=== PATIENT | female | born 1965 | race Caucasian/White ===

== ENCOUNTER 2017-01-11 08:12 | Emergency (ER) | payer OTHER ==
[2017-01-11 08:17] VITALS: BP 153/100; PULSE 67; TEMP 97.6; BMI 31.2
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
== END 2017-01-11 10:19 | disposition home or self-care (01) ==
LOC: FER 08:12
DX: M79.644 Pain in right finger(s) (principal); Y04.2XXA Assault by strike against or bumped into by another person, initial encounter; Y93.89 Activity, other specified; Y92.239 Unspecified place in hospital as the place of occurrence of the external cause; Y99.0 Civilian activity done for income or pay; I10 Essential (primary) hypertension; E78.00 Pure hypercholesterolemia, unspecified
CPT/HCPCS: 73130-TC-RT; 99282-25

== ENCOUNTER 2021-08-06 17:44 | Emergency (ER) | payer OTHER ==
[2021-08-06 18:00] VITALS: BP 174/90; PULSE 74; BMI 33.5
[2021-08-06] MEDS ORDERED: METOCLOPRAMIDE HCL INJECTION 10 MG/2 ML VIAL IVPB ONE (20:29)
[2021-08-06] MEDS ORDERED: SODIUM CHLORIDE 1,000 ML IV STA (20:29)
[2021-08-06] MEDS ORDERED: ACETAMINOPHEN 1000 MG/100 ML VIAL IVPB ONE (20:29)
[2021-08-06] MEDS ORDERED: METOCLOPRAMIDE HCL INJECTION 10 MG/2 ML VIAL ONE (21:03)
[2021-08-06] MEDS ORDERED: ACETAMINOPHEN INJECTION 100 ML IVPB ONE (21:14)
[2021-08-06 21:53] LABS: BASO % 0.9 % (0-2.0); EOS % 4.8 % (0-4.5); HEMATOCRIT 40.4 % (32.4-45.2); HEMOGLOBIN 13.3 GM/dL (10.7-15.3); LYMPH % 35.5 % (8-40); MCH 25.6 pg (25.7-33.7); MCHC 32.9 g/dl (32.0-36.0); MEAN CELL VOLUME 77.8 fl (80-96); MEAN PLT VOLUME 8.5 fl (7.5-11.1); MONO % 7.1 % (3.8-10.2); NEUT % 51.7 % (42.8-82.8); PLATELET COUNT 373 10^3/uL (134-434); RBC 5.19 M/mm3 (3.60-5.2); RDW 13.8 % (11.6-15.6); WHITE BLOOD COUNT 8.5 K/mm3 (4.0-10.0)
[2021-08-06 22:13] LABS: CALCIUM 9.4 mg/dL (8.5-10.1)
[2021-08-06 22:14] LABS: ALBUMIN 3.4 g/dl (3.4-5.0); BLOOD UREA NITROGEN 13.7 mg/dL (7-18)
[2021-08-06 22:17] LABS: CREATININE 0.7 mg/dL (0.55-1.3)
[2021-08-06 22:19] LABS: TOT PROT 7.2 g/dl (6.4-8.2)
[2021-08-06 22:28] LABS: BILIRUBIN,TOTAL 0.5 mg/dL (0.2-1)
[2021-08-06] MEDS ORDERED: AMOX TR/POT CLAV 875MG/125MG TABLETS (FP) PO ONE (22:45)
[2021-08-06] MEDS ORDERED: AMOX TR/POT CLAV 875MG/125MG TABLETS (FP) ONE (23:14)
== END 2021-08-07 00:17 | disposition home or self-care (01) ==
LOC: JER 17:44
PROC: 3E0333Z Introduction of Anti-inflammatory into Peripheral Vein, Percutaneous Approach (ICD-10-PCS; principal; 2021-08-06)
PROC: 3E033GC Introduction of Other Therapeutic Substance into Peripheral Vein, Percutaneous Approach (ICD-10-PCS; 2021-08-06)
PROC: 3E033GC Introduction of Other Therapeutic Substance into Peripheral Vein, Percutaneous Approach (ICD-10-PCS; 2021-08-06)
PROC: 3E0337Z Introduction of Electrolytic and Water Balance Substance into Peripheral Vein, Percutaneous Approach (ICD-10-PCS; 2021-08-06)
DX: J01.20 Acute ethmoidal sinusitis, unspecified (principal); R51.9 Headache, unspecified
CPT/HCPCS: 36415; 70450-TC; 80053; 85025; 99284-25; J0131